=== PATIENT | male | born 1985 | race Caucasian/White ===

== ENCOUNTER 2018-06-27 11:09 | Emergency (ER) | payer BC, OTHER ==
[2018-06-27] MEDS ORDERED: ONDANSETRON 4 MG/2 ML VIAL ONE (12:50)
[2018-06-27] MEDS ORDERED: KETOROLAC 30 MG/ML INJ ONE (12:50)
[2018-06-27] MEDS ORDERED: MORPHINE 4 MG/ML SYR ONE (12:50)
[2018-06-27] MEDS ORDERED: METHYLPREDNISOLONE 125 MG INJ ONE (12:50)
--- NOTE | 2018-06-27 13:37 | ER ---
Nurse's Notes [facility] Name: Sohail Mitchell Age: 32 yrs Sex: Male : 1985 Arrival Date: 06/27/2018 Time: 11:14 Bed 12 Private MD: Diagnosis: Sciatica, left side Presentation: 06/27 11:15 Presenting complaint: Patient states: Low back pain that shoots down left leg for 1 aj month. Patient denies seeing PCP, but has seen 3 chiropractors. Smells of ETOH. Transition of care: patient was not received from another setting of care. Onset of symptoms was May 31, 2018. Risk Assessment: Do you want to hurt yourself or someone else? Patient reports no desire to harm self or others. Initial Sepsis Screen: Does the patient meet any 2 criteria? No. Patient's initial sepsis screen is negative. Does the patient have a suspected source of infection? No. Patient's initial sepsis screen is negative. Note Patient drove himself to ER. Care prior to arrival: None. 11:15 Method Of Arrival: Ambulatory aj 11:15 Acuity: MILADY 2 aj 12:52 Acuity: MILADY 3 iw Triage Assessment: 11:17 General: Appears in no apparent distress. comfortable, Behavior is calm, cooperative, aj appropriate for age, Smells of alcohol. Pain: Complains of pain in coccyx, left lower back, left gluteus vivian, left gluteal fold, left hamstring and posterior aspect of left knee. Neuro: Level of Consciousness is awake, alert, obeys commands, Oriented to person, place, time, situation, Appropriate for age. Respiratory: Airway is patent Respiratory effort is even, unlabored, Respiratory pattern is regular, symmetrical. Derm: Skin is intact, is healthy with good turgor, Skin is pink, warm \T\ dry. normal. Musculoskeletal: Range of motion: intact in all extremities, Reports pain in coccyx, left lower back, left gluteus vivian, left gluteal fold, left hamstring and posterior aspect of left knee. Historical: - Allergies: 11:17 No Known Allergies; aj - Home Meds: 11:17 None [Active]; aj - PMHx: 11:17 None; aj - PSHx: 11:17 None; aj - Immunization history:: Adult Immunizations up to date. - Social history:: Smoking status: Patient uses tobacco products, smokes one pack cigarettes per day. - Ebola Screening: : Patient negative for fever greater than or equal to 101.5 degrees Fahrenheit, and additional compatible Ebola Virus Disease symptoms Patient denies exposure to infectious person Patient denies travel to an Ebola-affected area in the 21 days before illness onset No symptoms or risks identified at this time. Screenin:52 Abuse screen: Denies threats or abuse. Denies injuries from another. Nutritional iw screening: No deficits noted. Tuberculosis screening: No symptoms or risk factors identified. Fall Risk IV access (20 points). Assessment: 12:20 General: Appears in no apparent distress. uncomfortable, Behavior is calm, cooperative, iw appropriate for age. Pain: Complains of pain in left lower back Pain radiates to left leg. Neuro: Level of Consciousness is awake, alert, obeys commands, Oriented to person, place, time. Cardiovascular: Capillary refill < 3 seconds in bilateral fingers Patient's skin is warm and dry. Respiratory: Respiratory effort is even, unlabored, Respiratory pattern is regular, symmetrical. Derm: Skin is intact, is healthy with good turgor. Musculoskeletal: Range of motion: intact in all extremities, Reports pain in back. 12:51 Reassessment: pt feeling nauseous after solu-medrol and toradol, holding morphine, pt iw advised to call me when feeling better, call light in reach. 13:40 Reassessment: Patient appears in no apparent distress at this time. Patient and/or iw family updated on plan of care and expected duration. Pain level reassessed. Patient is alert, oriented x 3, equal unlabored respirations, skin warm/dry/pink. Patient states feeling better. Patient states symptoms have improved. Vital Signs: 11:17 BP 152 / 102; Pulse 115; Resp 19; Temp 97.8; Pulse Ox 97% on R/A; Weight 145.15 kg; aj Height 6 ft. 0 in. (182.88 cm); 13:13 BP 146 / 92; Pulse 90; Resp 16; Pulse Ox 98% on R/A; Pain 5/10; iw 11:17 Body Mass Index 43.40 (145.15 kg, 182.88 cm) aj ED Course: 11:14 Patient arrived in ED. mr 11:16 Triage completed. aj 11:17 Arm band placed on right wrist. Patient placed in an exam room. aj 11:27 Jude Babcock MD is Attending Physician. kdr 11:45 Perlita Noe, RN is Primary Nurse. iw 12:30 Patient has correct armband on for positive identification. iw 12:30 Inserted saline lock: 22 gauge in right hand, using aseptic technique. iw 13:47 No provider procedures requiring assistance completed. IV discontinued, intact, iw bleeding controlled, No redness/swelling at site. Pressure dressing applied. Administered Medications: 12:45 Drug: SOLU-Medrol 125 mg Route: IVP; Site: right hand; iw 12:45 Drug: TORadol 30 mg Route: IVP; Site: right hand; iw 12:45 Drug: Zofran 4 mg Route: IVP; Site: right hand; iw 13:00 Drug: morphine 4 mg Route: IVP; Site: right hand; iw Outcome: 13:37 Discharge ordered by MD. kdr 13:47 Discharged to home ambulatory, with family. iw 13:47 Condition: good 13:47 Discharge instructions given to patient, family, Instructed on discharge instructions, follow up and referral plans. medication usage, Demonstrated understanding of instructions, follow-up care, medications, Prescriptions given X 4. 13:48 Patient left the ED. iw Signatures: Denita Robertson RN RN Jude Babcock MD MD [facility] Arpita Rosado Perlita Noe, RN RN iw Corrections: (The following items were deleted from the chart) 11:18 11:15 Acuity: MILADY 5 [facility] 19:20 13:50 Reassessment: Patient appears in no apparent distress at this time. Patient iw and/or family updated on plan of care and expected duration. Pain level reassessed. Patient is alert, oriented x 3, equal unlabored respirations, skin warm/dry/pink. Patient states feeling better. Patient states symptoms have improved. iw
--- NOTE | 2018-06-27 13:38 | EDPHYS ---
Physician Documentation [facility] Name: Sohail Mitchell Age: 32 yrs Sex: Male : 1985 Arrival Date: 06/27/2018 Time: 11:14 Bed 12 Private MD: ED Physician Jude Babcock HPI: 06/27 12:39 This 32 yrs old Male presents to ER via Ambulatory with complaints of Back kdr Pain. 12:39 The patient presents with pain that is chronic, with no known mechanism of injury, and kdr decreased range of motion. The symptoms are located in the low back, The patient has had pain in his left sciatic pain region. The pain radiates down his left buttock, thigh and into his left calf. He was sent from his chiropractors office to get a steroid injection since he was in too much pain to be given an adjustment by the chiropractor. Onset: The symptoms/episode began/occurred gradually, 1 month(s) ago. noted above. Associated signs and symptoms: The patient has no apparent associated signs or symptoms. The problem was sustained from unknown cause. Modifying factors: The patient symptoms are alleviated by remaining still, Supine, the patient symptoms are aggravated by any movement. Severity of symptoms: At their worst the symptoms were severe, incapacitating, just prior to arrival, in the emergency department the symptoms are unchanged. The patient has not experienced similar symptoms in the past. The patient has not recently seen a physician. Historical: - Allergies: 11:17 No Known Allergies; aj - Home Meds: 11:17 None [Active]; aj - PMHx: 11:17 None; aj - PSHx: 11:17 None; aj - Immunization history:: Adult Immunizations up to date. - Social history:: Smoking status: Patient uses tobacco products, smokes one pack cigarettes per day. - Ebola Screening: : Patient negative for fever greater than or equal to 101.5 degrees Fahrenheit, and additional compatible Ebola Virus Disease symptoms Patient denies exposure to infectious person Patient denies travel to an Ebola-affected area in the 21 days before illness onset No symptoms or risks identified at this time. ROS: 12:39 Constitutional: Negative for fever, chills, and weight loss, Eyes: Negative for injury, kdr pain, redness, and discharge, ENT: Negative for injury, pain, and discharge, Neck: Negative for injury, pain, and swelling, Cardiovascular: Negative for chest pain, palpitations, and edema, Respiratory: Negative for shortness of breath, cough, wheezing, and pleuritic chest pain, Abdomen/GI: Negative for abdominal pain, nausea, vomiting, diarrhea, and constipation, : Negative for injury, bleeding, discharge, and swelling, MS/Extremity: Negative for injury and deformity, Skin: Negative for injury, rash, and discoloration, Psych: Negative for depression, anxiety, suicide ideation, homicidal ideation, and hallucinations, Allergy/Immunology: Negative for hives, rash, and allergies, Endocrine: Negative for neck swelling, polydipsia, polyuria, polyphagia, and marked weight changes, Hematologic/Lymphatic: Negative for swollen nodes, abnormal bleeding, and unusual bruising. 12:39 Back: Positive for pain at rest, pain with movement, radiated pain. 12:39 Neuro: Positive for gait disturbance, tingling, of the left hamstring, posterior aspect of left knee and left calf. Exam: 12:39 Constitutional: This is a well developed, well nourished patient who is awake, alert, kdr and in no acute distress. Head/Face: Normocephalic, atraumatic. Eyes: Pupils equal round and reactive to light, extra-ocular motions intact. Lids and lashes normal. Conjunctiva and sclera are non-icteric and not injected. Cornea within normal limits. Periorbital areas with no swelling, redness, or edema. Neck: Trachea midline, no thyromegaly or masses palpated, and no cervical lymphadenopathy. Supple, full range of motion without nuchal rigidity, or vertebral point tenderness. No Meningismus. Chest/axilla: Normal chest wall appearance and motion. Nontender with no deformity. No lesions are appreciated. Cardiovascular: Regular rate and rhythm with a normal S1 and S2. No gallops, murmurs, or rubs. Normal PMI, no JVD. No pulse deficits. Respiratory: Lungs have equal breath sounds bilaterally, clear to auscultation and percussion. No rales, rhonchi or wheezes noted. No increased work of breathing, no retractions or nasal flaring. Abdomen/GI: Soft, non-tender, with normal bowel sounds. No distension or tympany. No guarding or rebound. No evidence of tenderness throughout. Skin: Warm, dry with normal turgor. Normal color with no rashes, no lesions, and no evidence of cellulitis. Neuro: Awake and alert, GCS 15, oriented to person, place, time, and situation. Cranial nerves II-XII grossly intact. Motor strength 5/5 in all extremities. Sensory grossly intact. Cerebellar exam normal. Normal gait. Psych: Awake, alert, with orientation to person, place and time. Behavior, mood, and affect are within normal limits. 12:39 Back: pain, that is severe, of the left low back, CVA tenderness, is absent, muscle spasm. Vital Signs: 11:17 BP 152 / 102; Pulse 115; Resp 19; Temp 97.8; Pulse Ox 97% on R/A; Weight 145.15 kg; aj Height 6 ft. 0 in. (182.88 cm); 13:13 BP 146 / 92; Pulse 90; Resp 16; Pulse Ox 98% on R/A; Pain 5/10; iw 11:17 Body Mass Index 43.40 (145.15 kg, 182.88 cm) aj MDM: 12:39 Data reviewed: vital signs, nurses notes. Counseling: I had a detailed discussion with kdr the patient and/or guardian regarding: the historical points, exam findings, and any diagnostic results supporting the discharge/admit diagnosis, the need for outpatient follow up. 13:37 Patient medically screened. kdr Administered Medications: 12:45 Drug: SOLU-Medrol 125 mg Route: IVP; Site: right hand; iw 12:45 Drug: TORadol 30 mg Route: IVP; Site: right hand; iw 12:45 Drug: Zofran 4 mg Route: IVP; Site: right hand; iw 13:00 Drug: morphine 4 mg Route: IVP; Site: right hand; iw Disposition: 06/27/18 13:37 Discharged to Home. Impression: Sciatica, left side. - Condition is Stable. - Discharge Instructions: Sciatica, [id number], Radicular Pain. - Prescriptions for Ibuprofen 800 mg Oral Tablet - take 1 tablet by ORAL route every 8 hours As needed take with food; 30 tablet. Pepcid 20 mg Oral Tablet - take 1 tablet by ORAL route every 12 hours for 5 days; 10 tablet. Robaxin 500 mg Oral Tablet - take 2 tablet by ORAL route every 6 hours As needed; 40 tablet. Tylenol- Codeine #3 300-30 mg Oral Tablet - take 2 tablet by ORAL route every 6 hours As needed; 30 tablet. Medrol (Moncho) 4 mg Oral Tablets, Dose Pack - take 1 tablet by ORAL route as directed - follow package instructions; 1 packet. - Medication Reconciliation Form, Thank You Letter, Prescription Opioid Use, Work release form form. - Follow up: Private Physician; When: 2 - 3 days; Reason: If symptoms return, Further diagnostic work-up, Recheck today's complaints, Continuance of care, Re-evaluation by your physician. - Problem is an ongoing problem. - Symptoms have improved. Signatures: Denita Robertson RN RN Jude Schafer MD MD kdr Perlita Noe RN RN iw Corrections: (The following items were deleted from the chart) 13:48 13:37 06/27/2018 13:37 Discharged to Home. Impression: Sciatica, left side. Condition iw is Stable. Forms are Medication Reconciliation Form, Thank You Letter, Antibiotic Education, Prescription Opioid Use. Follow up: Private Physician; When: 2 - 3 days; Reason: If symptoms return, Further diagnostic work-up, Recheck today's complaints, Continuance of care, Re-evaluation by your physician. Problem is an ongoing problem. Symptoms have improved. kdr
== END 2018-06-27 13:48 | disposition home or self-care (01) ==
LOC: ER 11:09
DX: M54.32 Sciatica, left side (principal); F17.210 Nicotine dependence, cigarettes, uncomplicated
CPT/HCPCS: 96374; 96375; 99283; J2405; J2930